=== PATIENT | male | born 1955 | race Caucasian/White ===

== ENCOUNTER → 2018-07-15 | Outpatient (CLI) | payer OTHER | LOC: CIMAGING 12:47 | PROVIDERS: ATTEND Physical Medicine & Rehabilitation Neuromuscular Medicine | DX: M25.78 Osteophyte, vertebrae (principal); M89.38 Hypertrophy of bone, other site | CPT/HCPCS: 72114-PO ==

== ENCOUNTER → 2018-11-18 | Outpatient (CLI) | payer OTHER | LOC: CIMAGING 07:12 ==